=== PATIENT | male | born 1950 | race Caucasian/White ===

== ENCOUNTER 2023-11-16 01:17 | Inpatient (IN) | payer MEDICARE ==
[~2023-11-16] VITALS: Ht 180.3 cm; Wt 117.0 kg
[2023-11-16] MEDS ORDERED: FURO40TA5 PO (01:33)
[2023-11-16] MEDS ORDERED: LOSA50TA39 PO (01:33)
[2023-11-16] MEDS ORDERED: NIFE-60 PO (01:33)
[2023-11-16] MEDS ORDERED: ATOR20TA PO (01:33)
[2023-11-16] MEDS ORDERED: QUET25TA PO (01:33)
[2023-11-16] MEDS ORDERED: CARV25TA2 PO (01:33)
[2023-11-16] MEDS ORDERED: HEPA500034 SUBCUT (01:33)
[2023-11-16] MEDS ORDERED: DIVA250T4 PO (01:33)
[2023-11-16] MEDS ORDERED: ETHANOL TOP (01:59)
[2023-11-16] MEDS ORDERED: HALO50AM2 IM (01:59)
[2023-11-16] MEDS ORDERED: POTA20TA83 PO (01:59)
[2023-11-16 02:09] LABS: CALCIUM 8.9 mg/dL (8.5-10.1); CARBON DIOXIDE 30 mmol/L (21-32); CHLORIDE 107 mmol/L (98-107); CREATININE 0.9 mg/dL (0.6-1.3); GLUCOSE 119 mg/dL (74-106); SODIUM SERUM 143 mmol/L (136-145); UREA NITROGEN, BLOOD 23 mg/dL (7-18)
[2023-11-16 02:15] LABS: ALANINE AMINOTRANSFERASE 65 U/L (16-63); ALBUMIN 3.4 g/dL (3.4-5.0); ALKALINE PHOSPHATASE 104 U/L (50-136); ASPARTATE AMINOTRANSFERASE 100 U/L (15-37); BILIRUBIN,TOTAL 0.6 mg/dL (0.2-1.0); MAGNESIUM 2.1 mg/dL (1.8-2.4); TOTAL PROTEIN, SERUM 7.2 g/dL (6.4-8.2)
[2023-11-16] MEDS ORDERED: LORAZEPAM 1 MG TABLET PO PRN (04:00)
[2023-11-16] MEDS ORDERED: MAG HYDROX/AL HYDROX/SIMETH 30 ML LIQUID UDC PO PRN (04:00)
[2023-11-16] MEDS ORDERED: MAGNESIUM HYDROXIDE 30 ML LIQUID UDC PO PRN (04:00)
[2023-11-16] MEDS: BLOOD SUGAR DIAGNOSTIC 1 EACH STRIP VI ONE (04:42)
[2023-11-16 07:35] VITALS: BP 145/86; TEMP 98.2; O2SAT 98
[2023-11-16] MEDS ORDERED: ATORVASTATIN 10 MG TABLET PO SCH (12:48)
[2023-11-16] MEDS: LORAZEPAM 1 MG TABLET PO PRN (13:00)
[2023-11-16] MEDS: ACETAMINOPHEN 325 MG TABLET PO PRN (13:00)
[2023-11-16] MEDS ORDERED: OXCA300T15 PO (13:41)
[2023-11-16 15:40] VITALS: BP 115/70; TEMP 98; O2SAT 94
[2023-11-16] MEDS: QUETIAPINE FUMARATE 25 MG TABLET PO SCH (16:42)
[2023-11-16 18:40] LABS: THYROID STIMULATING HORMONE 1.334 mIU/mL (0.358-3.740)
[2023-11-16] MEDS ORDERED: LOSARTAN POTASSIUM 50 MG TABLET PO SCH (19:15)
[2023-11-16] MEDS ORDERED: hydrALAZINE HCL 25 MG TABLET PO PRN (19:30)
[2023-11-16 20:13] VITALS: BP 97/64; TEMP 98.1; O2SAT 96
[2023-11-16] MEDS: MEMANTINE HCL 5 MG TABLET PO SCH (21:07)
[2023-11-16] MEDS: ATORVASTATIN 10 MG TABLET PO SCH (21:07)
[2023-11-16] MEDS: CARVEDILOL 6.25 MG TABLET PO SCH (21:12)
[2023-11-16] MEDS: DIVALPROEX SPRINKLE 125 MG CAP.SPRINK PO SCH (21:12)
[2023-11-16 21:13] VITALS: BP 100/81; O2SAT 96
[2023-11-17 08:27] VITALS: BP_SYST 102; BP_SYST 131; BP_DIAS 62; BP_DIAS 67; TEMP 98; TEMP 98.2; O2SAT 94; O2SAT 96
[2023-11-17 08:46] LABS: BASOPHILS # (AUTO) 0.1 K/UL (0.0-0.2); BASOPHILS % (AUTO) 0.8 % (0.0-2.0); EOSINOPHILS # (AUTO) 0.2 K/uL (0.0-0.7); EOSINOPHILS % (AUTO) 2.7 % (0.0-7.0); HEMATOCRIT 40.7 % (36.7-47.1); HEMOGLOBIN 13.6 g/dL (12.5-16.3); LYMPHOCYTES # (AUTO) 1.5 K/uL (0.8-4.8); LYMPHOCYTES % (AUTO) 16.2 % (20.5-51.5); MEAN CORPUSCULAR HEMOGLOBIN 30.3 uug (23.8-33.4); MEAN CORPUSCULAR HGB CONC 33 g/dL (32.5-36.3); MEAN CORPUSCULAR VOLUME 90.9 fL (73.0-96.2); MONOCYTES % (AUTO) 10.8 % (0.0-11.0); NEUTROPHILS # (AUTO) 6.2 K/uL (1.8-8.9); NEUTROPHILS % (AUTO) 69.5 % (38.5-71.5); PLATELET COUNT (AUTO) 280 K/uL (152-348); RED BLOOD CELL COUNT(AUTO) 4.48 MIL/uL (4.06-5.63); RED CELL DISTRIBUTION WIDTH 13.4 % (12.1-16.2)
[2023-11-17] MEDS: FUROSEMIDE 40 MG TABLET PO SCH (08:47)
[2023-11-17] MEDS: ASPIRIN 81 MG TAB.CHEW PO SCH (08:47)
[2023-11-17 08:51] LABS: DIFFERENTIAL COMMENT 1
[2023-11-17] MEDS ORDERED: OXCARBAZEPINE 300 MG TABLET PO SCH (09:00)
[2023-11-17 09:03] LABS: ALANINE AMINOTRANSFERASE 50 U/L (16-63); ALBUMIN 3.3 g/dL (3.4-5.0); ALKALINE PHOSPHATASE 101 U/L (50-136); ASPARTATE AMINOTRANSFERASE 51 U/L (15-37); BILIRUBIN,TOTAL 0.7 mg/dL (0.2-1.0); CALCIUM 8.9 mg/dL (8.5-10.1); CHLORIDE 105 mmol/L (98-107); GLUCOSE 105 mg/dL (74-106); MAGNESIUM 2.2 mg/dL (1.8-2.4); PHOSPHOROUS 4.2 mg/dL (2.5-4.9); POTASSIUM 4.4 mmol/L (3.5-5.1); SODIUM SERUM 144 mmol/L (136-145); TOTAL PROTEIN, SERUM 7.1 g/dL (6.4-8.2); UREA NITROGEN, BLOOD 23 mg/dL (7-18); VALPROIC ACID 20 ug/mL (50-100)
[2023-11-17 09:39] LABS: CARBON DIOXIDE 29 mmol/L (21-32)
[2023-11-17] MEDS: OLANZAPINE 10 MG VIAL IM ONE (14:45)
[2023-11-17 15:24] VITALS: BP 115/92; TEMP 98; O2SAT 94
[2023-11-17 20:00] VITALS: BP 119/62; TEMP 98.2; O2SAT 95
[2023-11-17] MEDS: OXCARBAZEPINE 300 MG TABLET PO SCH (21:19)
[2023-11-17 22:33] VITALS: BP 138/82
[2023-11-17] MEDS: ZOLPIDEM 5 MG TABLET PO PRN (22:36)
[2023-11-18 08:48] VITALS: BP 132/66; TEMP 98.2; O2SAT 99
[2023-11-18 15:52] VITALS: BP 109/76; TEMP 98; O2SAT 94
[2023-11-18 20:00] VITALS: BP 131/80; TEMP 98.1; O2SAT 95
[2023-11-19 07:50] VITALS: BP 167/90; TEMP 98; O2SAT 98
[2023-11-19 15:41] VITALS: BP 143/89; TEMP 98; O2SAT 98
[2023-11-19 20:15] VITALS: BP 150/93
[2023-11-19] MEDS: QUETIAPINE FUMARATE 25 MG TABLET PO SCH (20:34)
[2023-11-20 07:43] VITALS: BP 137/81; TEMP 97.6; O2SAT 96
[2023-11-20 16:50] VITALS: BP 116/75; TEMP 99; O2SAT 97
[2023-11-20 20:00] VITALS: BP 116/65; TEMP 97.8; O2SAT 92
[2023-11-21 08:33] VITALS: BP 133/78; TEMP 99.5; O2SAT 97
[2023-11-21] MEDS: OXCARBAZEPINE 150 MG TABLET PO SCH (13:00)
[2023-11-21 16:57] VITALS: BP 104/71; TEMP 98; O2SAT 97
[2023-11-21 19:54] VITALS: BP 136/74; TEMP 98.4; O2SAT 98
[2023-11-22 07:52] VITALS: BP 111/67; TEMP 98.4; O2SAT 97
[2023-11-22 16:36] VITALS: BP 120/71; TEMP 98.2; O2SAT 97
[2023-11-22 20:04] VITALS: BP 123/85; TEMP 98.1; O2SAT 97
[2023-11-23 07:47] VITALS: BP 122/61; TEMP 98; O2SAT 96
[2023-11-23 15:53] VITALS: BP 119/66; TEMP 98; O2SAT 96
[2023-11-23] MEDS: HYDROXYZINE PAMOATE 25 MG CAPSULE PO PRN (16:55)
[2023-11-23 19:50] VITALS: BP 120/62; TEMP 98.1; O2SAT 95
[2023-11-23] MEDS: MELATONIN 3 MG TABLET PO SCH (20:37)
[2023-11-24 07:30] VITALS: BP 122/73; TEMP 98.4; O2SAT 96
[2023-11-24 15:30] VITALS: BP 138/66; TEMP 98; O2SAT 98
[2023-11-24 20:00] VITALS: BP 120/51; TEMP 98.3; O2SAT 95
[2023-11-24] MEDS: QUETIAPINE FUMARATE 25 MG TABLET PO SCH (20:12)
[2023-11-25 07:59] VITALS: BP 104/66; TEMP 98; O2SAT 98
[2023-11-25 16:03] VITALS: BP 98/68; TEMP 98; O2SAT 96
[2023-11-25 20:00] VITALS: BP 124/86; TEMP 98; O2SAT 95
[2023-11-26 08:05] VITALS: BP 120/72; TEMP 98; O2SAT 98
[2023-11-26 15:20] VITALS: BP 129/72; TEMP 98; O2SAT 98
[2023-11-26 20:00] VITALS: BP 122/76; TEMP 97.4; O2SAT 94
[2023-11-26] MEDS: OLANZAPINE 10 MG VIAL IM ONE (20:13)
[2023-11-27 07:54] VITALS: BP 144/59; TEMP 98.3; O2SAT 97
[2023-11-27] MEDS: DIVALPROEX SPRINKLE 125 MG CAP.SPRINK PO SCH (13:00)
[2023-11-27 16:13] VITALS: BP 140/77; TEMP 98.1; O2SAT 97
[2023-11-27 20:00] VITALS: BP 115/70; TEMP 98.5; O2SAT 95
[2023-11-28 08:21] VITALS: BP 120/75; TEMP 98.3; O2SAT 97
[2023-11-28 16:07] VITALS: BP 119/74; TEMP 98.1; O2SAT 97
[2023-11-28 19:55] VITALS: BP 116/65; TEMP 98; O2SAT 97
[2023-11-29 08:00] VITALS: BP 125/84; TEMP 97.9; O2SAT 97
[2023-11-29 16:00] VITALS: BP 129/77; TEMP 98; O2SAT 96
[2023-11-29 20:00] VITALS: BP 123/77; TEMP 98.6; O2SAT 98
[2023-11-30 07:38] VITALS: BP 118/70; TEMP 98; O2SAT 96
[2023-11-30 15:56] VITALS: BP 116/76; TEMP 98; O2SAT 98
[2023-11-30 20:45] VITALS: BP 111/55; TEMP 98; O2SAT 97
[2023-12-01 08:21] VITALS: BP 156/71; TEMP 98; O2SAT 98
[2023-12-01 15:09] VITALS: BP 108/58; TEMP 98; O2SAT 98
== END 2023-12-01 19:00 | DRG 885 ==
LOC: ER 01:29 → GPS 01:42
PROVIDERS: ADMIT Psychiatry & Neurology Psychiatry; ATTEND Internal Medicine
DX: F29 Unspecified psychosis not due to a substance or known physiological condition (principal); F01.52 Vascular dementia, unspecified severity, with psychotic disturbance; I11.0 Hypertensive heart disease with heart failure; F01.511 Vascular dementia, unspecified severity, with agitation; E44.1 Mild protein-calorie malnutrition; D68.59 Other primary thrombophilia; I69.351 Hemiplegia and hemiparesis following cerebral infarction affecting right dominant side; R47.01 Aphasia; Z74.09 Other reduced mobility; E78.5 Hyperlipidemia, unspecified; E66.9 Obesity, unspecified; E88.09 Other disorders of plasma-protein metabolism, not elsewhere classified; G40.909 Epilepsy, unspecified, not intractable, without status epilepticus; G93.89 Other specified disorders of brain; I50.9 Heart failure, unspecified; Z79.82 Long term (current) use of aspirin; Z20.822 Contact with and (suspected) exposure to COVID-19; R74.01 Elevation of levels of liver transaminase levels; E86.0 Dehydration; I25.10 Atherosclerotic heart disease of native coronary artery without angina pectoris; Z68.36 Body mass index [BMI] 36.0-36.9, adult; R26.89 Other abnormalities of gait and mobility
CPT/HCPCS: 36415; 70450; 71045; 80164; 83735; 83921; 84100; 84443; 84484; 85025; 93005; A4606; A4663; J2358